=== PATIENT | female | born 1965 | race Hispanic/Latino ===

== ENCOUNTER 2025-04-23 10:09 | Day surgery (SDC) | payer BC ==
[2025-04-20 08:38] VITALS: BMI 20.1
== END 2025-04-23 14:10 | disposition home or self-care (01) ==
LOC: MRI 10:09
PROVIDERS: ATTEND Physician Assistant
DX: K86.1 Other chronic pancreatitis (principal); K82.8 Other specified diseases of gallbladder; M85.80 Other specified disorders of bone density and structure, unspecified site; E78.5 Hyperlipidemia, unspecified; I47.10 Supraventricular tachycardia, unspecified; Z98.890 Other specified postprocedural states; Z91.040 Latex allergy status
CPT/HCPCS: 74181; 76376